=== PATIENT | female | born 1940 | race Hispanic/Latino ===

== ENCOUNTER → 2018-02-12 | Outpatient (CLI) | payer OTHER ==
[~2018-02-12] MED LIST: ALEN70TA47 PO; FURO20TA4 PO; GLIP1TAB6 PO; INSU100V3 IJ; LISI-617 PO; METO50TA18 PO; PANT40TA PO; PRAV40TA3 PO; WARF3TAB59 PO; WARF6TAB49 PO
== END ==
LOC: SHCH 13:50
PROVIDERS: ATTEND Internal Medicine Cardiovascular Disease
DX: I48.2 Chronic atrial fibrillation (principal); R60.0 Localized edema; Z95.2 Presence of prosthetic heart valve
CPT/HCPCS: 93925; 93970

== ENCOUNTER 2019-05-21 09:54 | Emergency (ER) | payer OTHER ==
[~2019-05-21 09:54] MED LIST changes: +ALEN70TA10 PO; -ALEN70TA47 PO
[2019-05-21 10:43] LABS: BASOPHILS % (AUTO) 1.2 % (0.0-5.0); EOSINOPHILS % (AUTO) 2.6 % (0.0-8.0); HEMATOCRIT 30.5 % (36-48); LYMPHOCYTES % (AUTO) 20.9 % (21.0-51.0); MEAN CORPUSCULAR HEMOGLOBIN 30.3 pg (27.0-33.0); MEAN CORPUSCULAR HGB CONC 34.1 g/dL (32.0-36.0); MEAN CORPUSCULAR VOLUME 88.7 fL (79-99); MONOCYTES % (AUTO) 9.1 % (3.0-13.0); NEUTROPHILS % (AUTO) 66.2 % (40.0-77.0); PLATELET COUNT (AUTO) 187 K/uL (130-400); RED BLOOD CELL COUNT(AUTO) 3.44 MIL/uL (4.00-5.50); RED CELL DISTRIBUTION WIDTH 13.9 % (11.0-15.5); WHITE BLOOD COUNT (AUTO) 7.5 K/uL (4.8-10.8)
[2019-05-21 11:04] LABS: CREATININE 0.7 mg/dL (0.5-1.5); POTASSIUM 3.9 mmol/L (3.5-5.1)
[2019-05-21 11:12] LABS: ALBUMIN 3.8 g/dL (3.5-5.0); BILIRUBIN,TOTAL 0.6 mg/dL (0.2-1.0); TOTAL PROTEIN, SERUM 7.9 g/dL (6.0-8.3)
[2019-05-21] MEDS ORDERED: IOHEXOL-350 50ML VIAL IV ONE (12:10)
== END 2019-05-21 14:40 | disposition home or self-care (01) ==
LOC: EDH 09:54
DX: J02.9 Acute pharyngitis, unspecified (principal); R22.0 Localized swelling, mass and lump, head; K14.8 Other diseases of tongue; I48.91 Unspecified atrial fibrillation; E11.9 Type 2 diabetes mellitus without complications; E78.5 Hyperlipidemia, unspecified; I10 Essential (primary) hypertension; Z86.73 Personal history of transient ischemic attack (TIA), and cerebral infarction without residual deficits; Z90.49 Acquired absence of other specified parts of digestive tract; Z88.0 Allergy status to penicillin; Z88.6 Allergy status to analgesic agent
CPT/HCPCS: 36415; 70491; 80053; 85025; 87880; 99285; Q9967

== ENCOUNTER 2019-07-03 19:38 | Observation (INO) | payer OTHER ==
[~2019-07-03] VITALS: Ht 152.4 cm; Wt 48.9 kg
[2019-07-03 19:58] LABS: EOSINOPHILS % (AUTO) 2.9 % (0.0-8.0); LYMPHOCYTES % (AUTO) 33.6 % (21.0-51.0); MEAN CORPUSCULAR HEMOGLOBIN 30.2 pg (27.0-33.0); MEAN CORPUSCULAR HGB CONC 33.4 g/dL (32.0-36.0); MEAN CORPUSCULAR VOLUME 90.5 fL (79-99); MONOCYTES % (AUTO) 10.3 % (3.0-13.0); NEUTROPHILS % (AUTO) 52.2 % (40.0-77.0); NUCLEATED RED BLOOD CELLS 0.1 % (0.0-0.19); PLATELET COUNT (AUTO) 156 K/uL (130-400); RED BLOOD CELL COUNT(AUTO) 3.54 MIL/uL (4.00-5.50); WHITE BLOOD COUNT (AUTO) 6.3 K/uL (4.8-10.8)
[2019-07-03 20:11] LABS: CREATININE 0.9 mg/dL (0.5-1.5); INR 1.7 (0.85-1.15); PARTIAL THROMBOPLASTIN TIME 35.8 SEC (26.3-35.5); POTASSIUM 3.4 mmol/L (3.5-5.1); PROTHROMBIN TIME 17.7 SEC (9.6-11.6)
[2019-07-03 20:12] LABS: APPEARANCE,URINE Clear (CLEAR); BILIRUBIN,URINE Negative (NEGATIVE); COLOR,URINE Yellow (YELLOW); GLUCOSE, URINE (UA) Negative (NEGATIVE); KETONES,URINE Negative (NEGATIVE); LEUKOCYTE ESTERASE ,URINE Negative (NEGATIVE); NITRATE,URINE Negative (NEGATIVE); OCCULT BLOOD,URINE Negative (NEGATIVE); PH,URINE 5.5 (5.0-8.0); PROTEIN,URINE Negative (NEGATIVE); UROBILINOGEN,URINE 0.2 mg/dL (0.2-1.0)
[2019-07-03 20:15] LABS: ALBUMIN 4.1 g/dL (3.5-5.0); BILIRUBIN,TOTAL 0.4 mg/dL (0.2-1.0); TOTAL PROTEIN, SERUM 7.9 g/dL (6.0-8.3)
[2019-07-03 20:41] LABS: B-TYPE NATRIURETIC PEPTIDE 33 pg/mL (0-100)
[2019-07-03] MEDS ORDERED: NITROGLYCERIN 1GM/1 INCH PACKET TD ONE (21:49)
[2019-07-03] MEDS ORDERED: ASPIRIN 325 MG TABLET ONE (21:49)
[2019-07-03] MEDS ORDERED: POTASSIUM CHLORIDE 20 MEQ ERTAB PO ONE (21:49)
[2019-07-04] MEDS ORDERED: METOPROLOL TARTRATE 1 MG/ML 5ML VIAL IV PRN (00:45)
[2019-07-04] MEDS ORDERED: NITROGLYCERIN 0.4 MG SL TAB SL PRN (00:45)
[2019-07-04] MEDS ORDERED: LACTULOSE 20 GM/30 ML UDCUP PO PRN (00:45)
[2019-07-04] MEDS ORDERED: GUAIFENESIN-DM 200/20 MG 10 ML PO PRN (00:45)
[2019-07-04] MEDS ORDERED: HYDRALAZINE HCL 20 MG/ML VIAL IV PRN (00:45)
[2019-07-04] MEDS ORDERED: HYDROMORPHONE HCL 2 MG/ML VIAL IVP PRN (00:45)
[2019-07-04] MEDS ORDERED: ALPRAZOLAM 0.25 MG TABLET PO PRN (00:45)
[2019-07-04] MEDS ORDERED: IPRATROPIUM/ALBUTEROL SULFATE 3 ML SOLUTION IH PRN (00:45)
[2019-07-04] MEDS ORDERED: HYDROCODONE/ACETAMINOPHEN 5/325 MG TAB PO PRN (00:45)
[2019-07-04] MEDS ORDERED: ACETAMINOPHEN 325 MG TAB PO PRN ×2 (00:45)
[2019-07-04] MEDS ORDERED: ZOLPIDEM TARTRATE 5 MG TAB PO PRN (00:45)
[2019-07-04 02:33] VITALS: BP 154/73
[2019-07-04 07:46] VITALS: BP 134/63
[2019-07-04] MEDS ORDERED: WARF7.5T23 PO ×2 (08:09→16:00)
[2019-07-04] MEDS ORDERED: WARF5TAB76 PO ×2 (08:09→16:00)
[2019-07-04] MEDS ORDERED: FERR325T22 PO (08:10)
[2019-07-04] MEDS ORDERED: FAMOTIDINE/PF 20 MG/2 ML VIAL IV SCH (09:00)
[2019-07-04] MEDS ORDERED: ASPIRIN 81MG TAB.CHEW PO SCH ×2 (09:00→16:15)
[2019-07-04 11:30] VITALS: BP 155/60
[2019-07-04 12:03] LABS: HEMATOCRIT 32.8 % (36-48); MEAN CORPUSCULAR HEMOGLOBIN 30.5 pg (27.0-33.0); MEAN CORPUSCULAR HGB CONC 34.4 g/dL (32.0-36.0); MEAN CORPUSCULAR VOLUME 88.7 fL (79-99); PLATELET COUNT (AUTO) 154 K/uL (130-400); RED BLOOD CELL COUNT(AUTO) 3.69 MIL/uL (4.00-5.50); RED CELL DISTRIBUTION WIDTH 14.9 % (11.0-15.5); WHITE BLOOD COUNT (AUTO) 4.9 K/uL (4.8-10.8)
[2019-07-04 12:10] LABS: CREATININE 0.6 mg/dL (0.5-1.5); POTASSIUM 3.8 mmol/L (3.5-5.1)
[2019-07-04 12:12] LABS: INR 1.74 (0.85-1.15); PARTIAL THROMBOPLASTIN TIME 37.8 SEC (26.3-35.5); PROTHROMBIN TIME 18.1 SEC (9.6-11.6)
--- NOTE | 2019-07-04 12:42 | NUR ---
KALANI CARROLL MET WITH PT WHO LIVES ALONE WITH HER DOG. DAUGHTER FREDDIE LEVIN [phone] IS ER CONTACT. PT STATES SHE IS INDEPENDENT OF ADLS, USES CANE AND SHOWER CHAIR, NO IN HOME CARE SERVICES. PCP IS DR TATUM AND RX IS DEBRA SILVA. PL[place] Addendum: 07/04/19 at 1244 by MARIA G GE SS Amended: Links added.
[2019-07-04] MEDS ORDERED: METHYLPREDNISOLONE SOD SUCC 125MG/2ML VIAL IVP SCH (15:15)
--- NOTE | 2019-07-04 15:40 | NUR ---
ORDERS CLARIFIED- NO DISCHARGE TODAY. DR MAY FROM [facility] SEEING PT RIGHT NOW. ORDERS TO FOLLOW. NO REPEAT TROPONIN PER DR MAY.
[2019-07-04 15:44] VITALS: BP 179/85
[2019-07-04] MEDS ORDERED: LISI-617 PO (16:00)
[2019-07-04] MEDS ORDERED: ISOS30TA6 PO (16:00)
[2019-07-04] MEDS ORDERED: WARFARIN SODIUM 5 MG TAB PO SCH (16:00)
[2019-07-04] MEDS ORDERED: ASPI-555 PO (16:07)
[2019-07-04] MEDS ORDERED: WARFARIN SODIUM 7.5 MG TAB PO SCH (16:15)
--- NOTE | 2019-07-04 18:30 | NUR ---
DISCHARGED HOME WITH DAUGHTERS. PRINTED AND VERBAL INSTRUCTION GIVEN TO PT AND DAUGHTERS. I WENT THOROUGHLY OVER COUMADIN THERAPY AND DIET. TO CAR VIA WHEELCHAIR. NO ACUTE DISTRESS NOTED
[2019-07-04] MEDS ORDERED: FERROUS SULFATE 325 MG TABLET.DR PO SCH (21:00)
[2019-07-05] MEDS ORDERED: AMLODIPINE BESYLATE 5 MG TAB PO SCH (09:00)
[2019-07-05] MEDS ORDERED: ATORVASTATIN CALCIUM 10 MG TABLET PO SCH (09:00)
[2019-07-05] MEDS ORDERED: FUROSEMIDE 20 MG TABLET PO SCH (09:00)
[2019-07-05] MEDS ORDERED: WARFARIN SODIUM 7.5 MG TAB PO SCH (16:00)
== END 2019-07-04 18:30 | disposition home or self-care (01) ==
LOC: EDH 19:38 → EDHIP 23:57 → 2AH 07-04 02:18
PROVIDERS: ADMIT Internal Medicine; ATTEND Internal Medicine
DX: I25.119 Atherosclerotic heart disease of native coronary artery with unspecified angina pectoris (principal); E11.9 Type 2 diabetes mellitus without complications; E78.5 Hyperlipidemia, unspecified; I08.0 Rheumatic disorders of both mitral and aortic valves; I10 Essential (primary) hypertension; I45.9 Conduction disorder, unspecified; I48.2 Chronic atrial fibrillation; R79.1 Abnormal coagulation profile; Z79.01 Long term (current) use of anticoagulants; Z86.73 Personal history of transient ischemic attack (TIA), and cerebral infarction without residual deficits; Z95.0 Presence of cardiac pacemaker; Z95.1 Presence of aortocoronary bypass graft; Z95.3 Presence of xenogenic heart valve; Z79.899 Other long term (current) drug therapy
CPT/HCPCS: 36415 ×2; 70450; 71045; 80048; 80053; 81003; 82550; 83880; 84443; 84484 ×3; 85025; 85027; 85610 ×2; 85730 ×2; 93005; 94664; 96374; 99284; G0378 ×19; J3490

== ENCOUNTER → 2020-12-08 | Outpatient (CLI) | payer OTHER ==
[~2020-12-08] MED LIST changes: -ALEN70TA10 PO; +ASPI-556 PO; +FERR325T22 PO; -GLIP1TAB6 PO; -INSU100V3 IJ; +ISOS30TA6 PO; -PANT40TA PO; -WARF3TAB59 PO; +WARF5TAB PO; -WARF6TAB49 PO; +WARF7.5T23 PO
== END | disposition home or self-care (01) ==
LOC: SHCH 11:19
PROVIDERS: ATTEND Internal Medicine Cardiovascular Disease
DX: I34.0 Nonrheumatic mitral (valve) insufficiency (principal)
CPT/HCPCS: 93306; 93356

== ENCOUNTER → 2021-02-24 | Outpatient (CLI) | payer OTHER ==
[~2021-02-24] MED LIST changes: -ISOS30TA6 PO; +ISOS30TA92 PO; -LISI-617 PO; +LISI-809 PO
== END | disposition home or self-care (01) ==
LOC: RAH 11:09
PROVIDERS: ATTEND Family Medicine
DX: S00.93XA Contusion of unspecified part of head, initial encounter (principal); G31.89 Other specified degenerative diseases of nervous system; I63.89 Other cerebral infarction; X58.XXXA Exposure to other specified factors, initial encounter; Y93.89 Activity, other specified; Y92.89 Other specified places as the place of occurrence of the external cause; Y99.8 Other external cause status; Z79.01 Long term (current) use of anticoagulants
CPT/HCPCS: 70450

== ENCOUNTER 2021-10-06 10:00 | Observation (INO) | payer OTHER ==
[~2021-10-06] VITALS: Ht 154.9 cm; Wt 48.1 kg
[~2021-10-06 10:00] MED LIST changes: -LISI-809 PO; +LISI5TAB21 PO
[2021-10-06] MEDS ORDERED: IBUPROFEN 400 MG TABLET PO ONE (10:30)
[2021-10-06 10:47] LABS: BASOPHILS % (AUTO) 0.5 % (0.0-5.0); EOSINOPHILS % (AUTO) 2.5 % (0.0-8.0); HEMATOCRIT 32.4 % (36-48); LYMPHOCYTES % (AUTO) 20.3 % (21.0-51.0); MEAN CORPUSCULAR HEMOGLOBIN 29.7 pg (27.0-33.0); MEAN CORPUSCULAR HGB CONC 33.6 g/dL (32.0-36.0); MEAN CORPUSCULAR VOLUME 88.3 fL (79-99); MONOCYTES % (AUTO) 8.8 % (3.0-13.0); NEUTROPHILS % (AUTO) 67.7 % (40.0-77.0); PLATELET COUNT (AUTO) 180 K/uL (130-400); RED BLOOD CELL COUNT(AUTO) 3.67 MIL/uL (4.00-5.50); RED CELL DISTRIBUTION WIDTH 13.7 % (11.0-15.5); WHITE BLOOD COUNT (AUTO) 8.6 K/uL (4.8-10.8)
[2021-10-06] MEDS: DEXAMETHASONE SOD PHOSPHATE 4 MG/ML 1ML VIAL IM SCH (11:01)
[2021-10-06 11:24] LABS: CREATININE 0.9 mg/dL (0.5-1.5); POTASSIUM 3.6 mmol/L (3.5-5.1)
[2021-10-06 11:28] LABS: ALBUMIN 4.4 g/dL (3.5-5.0); BILIRUBIN,TOTAL 0.5 mg/dL (0.2-1.0); TOTAL PROTEIN, SERUM 8.1 g/dL (6.0-8.3)
[2021-10-06] MEDS ORDERED: NITROGLYCERIN 0.4 MG SL TAB SL PRN (12:00)
[2021-10-06] MEDS ORDERED: ASPIRIN 325MG EC TAB PO ONE (12:00)
[2021-10-06] MEDS ORDERED: GLIP1TAB6 PO (12:50)
[2021-10-06] MEDS ORDERED: WARF-57 PO (12:50)
[2021-10-06] MEDS ORDERED: ATOR40TA71 PO (12:50)
[2021-10-06] MEDS ORDERED: WARF7.5T49 PO (12:50)
[2021-10-06] MEDS ORDERED: LISI5TAB21 PO (12:50)
[2021-10-06] MEDS ORDERED: METO25TA6 PO (12:50)
[2021-10-06] MEDS ORDERED: FURO20TA4 PO (12:50)
[2021-10-06] MEDS ORDERED: HYDROCODONE/ACETAMINOPHEN 5/325 MG TAB PO PRN (16:00)
[2021-10-06] MEDS ORDERED: ACETAMINOPHEN 325 MG TAB PO PRN ×2 (16:00)
[2021-10-06] MEDS ORDERED: METOPROLOL TARTRATE 1 MG/ML 5ML VIAL IV PRN (16:00)
[2021-10-06] MEDS ORDERED: HYDRALAZINE 20MG/ML VIAL IV PRN (16:00)
[2021-10-06] MEDS ORDERED: ONDANSETRON 4MG INJ IVP PRN (16:00)
[2021-10-06] MEDS ORDERED: LACTULOSE 20 GM/30 ML UDCUP PO PRN (16:00)
[2021-10-06] MEDS ORDERED: CLONIDINE HCL 0.1 MG TABLET PO PRN (16:00)
[2021-10-06] MEDS ORDERED: ATORVASTATIN 40 MG TABLET PO SCH (16:00)
[2021-10-06] MEDS: FAMOTIDINE 20MG TAB PO SCH (17:05)
[2021-10-06] MEDS: INSULIN HUMULIN R 100 UNIT/ML 3ML SQ SCH (21:03)
[2021-10-06] MEDS: FERROUS SULFATE 325 MG TABLET.DR PO SCH (21:03)
[2021-10-06] MEDS: METOPROLOL TARTRATE 25 MG TAB PO SCH (21:03)
[2021-10-06] MEDS: ENOXAPARIN SODIUM 30 MG/0.3 ML SQ SCH (21:03)
[2021-10-06 21:20] VITALS: BP 153/61
[2021-10-07] VITALS: BP 116/57
[2021-10-07 00:16] VITALS: BP 116/57
[2021-10-07 04:00] VITALS: BP 119/57
[2021-10-07 04:36] LABS: HEMATOCRIT 29.8 % (36-48); MEAN CORPUSCULAR HEMOGLOBIN 29.8 pg (27.0-33.0); MEAN CORPUSCULAR HGB CONC 33.9 g/dL (32.0-36.0); MEAN CORPUSCULAR VOLUME 87.9 fL (79-99); RED BLOOD CELL COUNT(AUTO) 3.39 MIL/uL (4.00-5.50); RED CELL DISTRIBUTION WIDTH 13.6 % (11.0-15.5); WHITE BLOOD COUNT (AUTO) 7.5 K/uL (4.8-10.8)
[2021-10-07 04:49] LABS: CREATININE 1.1 mg/dL (0.5-1.5); MAGNESIUM 1.8 mg/dL (1.80-2.40); PHOSPHORUS 3.6 mg/dL (2.5-4.9); POTASSIUM 3.7 mmol/L (3.5-5.1)
[2021-10-07] MEDS: INSULIN HUMULIN R 100 UNIT/ML 3ML SQ SCH ×3 (06:38→16:30)
[2021-10-07 08:00] VITALS: BP 126/63
[2021-10-07] MEDS ORDERED: LISINOPRIL 5 MG TABLET PO SCH (09:00)
[2021-10-07] MEDS ORDERED: ATORVASTATIN 20 MG TABLET PO SCH (09:00)
[2021-10-07] MEDS ORDERED: ASPIRIN 81MG CHEW TAB PO SCH (09:00)
[2021-10-07] MEDS ORDERED: ASPIRIN 81 MG EC TAB PO SCH (09:00)
[2021-10-07] MEDS ORDERED: FUROSEMIDE 20 MG TABLET PO SCH (09:00)
[2021-10-07] MEDS ORDERED: ISOSORBIDE MONO 30MG SR TAB PO SCH (09:00)
[2021-10-07] MEDS: FAMOTIDINE 20MG TAB PO SCH (09:26)
[2021-10-07] MEDS: FERROUS SULFATE 325 MG TABLET.DR PO SCH (09:26)
[2021-10-07] MEDS: METOPROLOL TARTRATE 25 MG TAB PO SCH (09:26)
[2021-10-07] MEDS: ENOXAPARIN SODIUM 30 MG/0.3 ML SQ SCH (09:27)
[2021-10-07] MEDS: DEXAMETHASONE SOD PHOSPHATE 4 MG/ML 1ML VIAL IM SCH (10:30)
[2021-10-07 12:00] VITALS: BP 102/50
[2021-10-07] MEDS ORDERED: METH4TAB3 PO (15:48)
[2021-10-07 16:00] VITALS: BP 116/73
== END 2021-10-07 18:15 | disposition home or self-care (01) ==
LOC: EDH 10:00 → EDHIP 12:51 → 3AH 20:52
PROVIDERS: ADMIT Internal Medicine Critical Care Medicine; ATTEND Internal Medicine Critical Care Medicine
DX: I21.4 Non-ST elevation (NSTEMI) myocardial infarction (principal); M25.511 Pain in right shoulder; M62.81 Muscle weakness (generalized); I25.10 Atherosclerotic heart disease of native coronary artery without angina pectoris; I34.1 Nonrheumatic mitral (valve) prolapse; I48.0 Paroxysmal atrial fibrillation; I10 Essential (primary) hypertension; E11.9 Type 2 diabetes mellitus without complications; E78.5 Hyperlipidemia, unspecified; E78.00 Pure hypercholesterolemia, unspecified; R77.8 Other specified abnormalities of plasma proteins; Z86.73 Personal history of transient ischemic attack (TIA), and cerebral infarction without residual deficits; Z95.1 Presence of aortocoronary bypass graft; Z79.01 Long term (current) use of anticoagulants; Z79.82 Long term (current) use of aspirin; Z79.899 Other long term (current) drug therapy; Z95.2 Presence of prosthetic heart valve; Z98.890 Other specified postprocedural states
CPT/HCPCS: 36415 ×2; 71045; 72125; 73030; 73200; 80048; 80053; 82948 ×4; 83735; 84100; 84484 ×4; 85025; 85027; 92610; 93005 ×2; 96372 ×2; 97116; 97161; 99291; G0378 ×28; J1100; J1650 ×2; J1815 ×2

== ENCOUNTER → 2021-11-22 | Outpatient (CLI) | payer OTHER ==
[~2021-11-22] MED LIST changes: -ASPI-556 PO; +ATOR40TA71 PO; -FERR325T22 PO; +GLIP1TAB6 PO; -ISOS30TA92 PO; +METH4TAB3 PO; +METO25TA6 PO; -METO50TA18 PO; -PRAV40TA3 PO; +REGADENOSON 0.4 MG/5 ML PF SYG IVP SCH; +WARF-57 PO; -WARF5TAB PO; -WARF7.5T23 PO; +WARF7.5T49 PO
== END | disposition home or self-care (01) ==
LOC: SHCH 07:36
PROVIDERS: ATTEND Internal Medicine Cardiovascular Disease
DX: I48.0 Paroxysmal atrial fibrillation (principal); Z79.01 Long term (current) use of anticoagulants; Z95.1 Presence of aortocoronary bypass graft; Z95.0 Presence of cardiac pacemaker
CPT/HCPCS: 78452; 93017; 96374; A9500 ×2; J2785

== ENCOUNTER 2022-04-21 23:11 | Observation (INO) | payer OTHER ==
[~2022-04-21] VITALS: Ht 152.4 cm; Wt 456.2 kg
[~2022-04-21 23:11] MED LIST changes: -REGADENOSON 0.4 MG/5 ML PF SYG IVP SCH
[2022-04-21 23:42] LABS: BASOPHILS % (AUTO) 0.3 % (0.0-5.0); EOSINOPHILS % (AUTO) 3.9 % (0.0-8.0); HEMATOCRIT 30.9 % (36-48); MEAN CORPUSCULAR HEMOGLOBIN 29.4 pg (27.0-33.0); MEAN CORPUSCULAR HGB CONC 32.7 g/dL (32.0-36.0); MEAN CORPUSCULAR VOLUME 89.8 fL (79-99); MONOCYTES % (AUTO) 12.3 % (3.0-13.0); NEUTROPHILS % (AUTO) 50.3 % (40.0-77.0); PLATELET COUNT (AUTO) 174 K/uL (130-400); RED BLOOD CELL COUNT(AUTO) 3.44 MIL/uL (4.00-5.50); RED CELL DISTRIBUTION WIDTH 13.8 % (11.0-15.5); WHITE BLOOD COUNT (AUTO) 6.1 K/uL (4.8-10.8)
[2022-04-22 00:06] LABS: CREATININE 0.8 mg/dL (0.5-1.5); POTASSIUM 3.7 mmol/L (3.5-5.1)
[2022-04-22 00:10] LABS: BILIRUBIN,TOTAL 0.4 mg/dL (0.2-1.0); TOTAL PROTEIN, SERUM 7.5 g/dL (6.0-8.3)
[2022-04-22 00:24] LABS: APPEARANCE,URINE Clear (CLEAR); BILIRUBIN,URINE Negative (NEGATIVE); COLOR,URINE Yellow (YELLOW); GLUCOSE, URINE (UA) 500 mg/dL (NEGATIVE); KETONES,URINE Negative (NEGATIVE); LEUKOCYTE ESTERASE ,URINE Small (NEGATIVE); NITRATE,URINE Negative (NEGATIVE); OCCULT BLOOD,URINE Small (NEGATIVE); PROTEIN,URINE Trace mg/dL (NEGATIVE)
[2022-04-22 00:30] LABS: BACTERIA,URINE None Seen /HPF (None Seen); RBC,URINE 0-1 /HPF (0-1); SQUAMOUS EPITHELIAL CELL,UR Rare /HPF (0-2); WBC,URINE 0-1 /HPF (0-1); YEAST,URINE BUDDING None Seen /HPF (None Seen)
[2022-04-22] MEDS ORDERED: NITROGLYCERIN 1GM OINT 1 INCH/1GM TD ONE (01:00)
[2022-04-22 01:01] LABS: PARTIAL THROMBOPLASTIN TIME 45.5 SEC (26.3-35.5)
[2022-04-22 01:14] LABS: PROTHROMBIN TIME 40.3 SEC (9.6-11.6)
[2022-04-22] MEDS ORDERED: ACETAMINOPHEN 650 MG SUPPOSITORY RC PRN (01:30)
[2022-04-22] MEDS ORDERED: HYDRALAZINE 20MG/ML VIAL IV PRN (01:30)
[2022-04-22] MEDS ORDERED: ACETAMINOPHEN 325 MG TAB PO PRN (01:30)
[2022-04-22] MEDS ORDERED: 0.9%NACL 1000ML 1,000 ML IV SCH (01:30)
[2022-04-22] MEDS ORDERED: MORPHINE 2 MG SYG IVP PRN (01:30)
[2022-04-22 05:36] VITALS: BP 163/73
[2022-04-22] MEDS ORDERED: IPRATROPIUM 0.5 MG/2.5 ML INH IH SCH (06:00)
[2022-04-22 07:00] VITALS: BP 135/61
[2022-04-22 07:23] LABS: INR 4.39 (0.85-1.15)
[2022-04-22] MEDS: INSULIN LISPRO 100 UNIT/ML 3ML SQ SCH ×4 (07:30→20:25)
[2022-04-22 09:16] LABS: HEMATOCRIT 31.1 % (36-48); MEAN CORPUSCULAR HEMOGLOBIN 29.3 pg (27.0-33.0); MEAN CORPUSCULAR HGB CONC 33.1 g/dL (32.0-36.0); MEAN CORPUSCULAR VOLUME 88.4 fL (79-99); PLATELET COUNT (AUTO) 171 K/uL (130-400); RED BLOOD CELL COUNT(AUTO) 3.52 MIL/uL (4.00-5.50); RED CELL DISTRIBUTION WIDTH 13.7 % (11.0-15.5); WHITE BLOOD COUNT (AUTO) 6.1 K/uL (4.8-10.8)
[2022-04-22 09:27] LABS: CREATININE 0.7 mg/dL (0.5-1.5); POTASSIUM 3.7 mmol/L (3.5-5.1)
[2022-04-22] MEDS ORDERED: METOPROLOL TARTRATE 25 MG TAB PO SCH (09:30)
[2022-04-22 09:56] LABS: BASOPHILS % (AUTO) 0.3 % (0.0-5.0); EOSINOPHILS % (AUTO) 3.3 % (0.0-8.0); LYMPHOCYTES % (AUTO) 28.4 % (21.0-51.0); MONOCYTES % (AUTO) 10.8 % (3.0-13.0); NEUTROPHILS % (AUTO) 56.9 % (40.0-77.0)
[2022-04-22] MEDS: LISINOPRIL 10 MG TABLET PO SCH (10:13)
[2022-04-22] MEDS: POTASSIUM CHLORIDE 10MEQ SR TAB PO SCH (10:14)
[2022-04-22] MEDS: METOPROLOL TARTRATE 25 MG TAB PO SCH ×2 (10:14→21:00)
[2022-04-22] MEDS: FUROSEMIDE 20MG VIAL IV SCH (10:14)
[2022-04-22 11:00] VITALS: BP 122/63
[2022-04-22 16:00] VITALS: BP 103/54
[2022-04-22 20:09] VITALS: BP 95/50
[2022-04-22] MEDS: ATORVASTATIN 40 MG TABLET PO SCH (20:24)
[2022-04-22] MEDS ORDERED: ENOXAPARIN SODIUM 1 MG/KG SQ SCH (21:00)
[2022-04-22] MEDS ORDERED: ENOXAPARIN SODIUM 60 MG/0.6 ML SQ SCH (21:00)
[2022-04-22 23:05] VITALS: BP 107/56
[2022-04-23] VITALS (7 sets, daily range): BP systolic 98–138; BP diastolic 50–66
[2022-04-23 04:02] LABS: HEMATOCRIT 31.3 % (36-48); MEAN CORPUSCULAR HEMOGLOBIN 29.2 pg (27.0-33.0); MEAN CORPUSCULAR HGB CONC 33.2 g/dL (32.0-36.0); MEAN CORPUSCULAR VOLUME 87.9 fL (79-99); RED BLOOD CELL COUNT(AUTO) 3.56 MIL/uL (4.00-5.50); RED CELL DISTRIBUTION WIDTH 13.8 % (11.0-15.5); WHITE BLOOD COUNT (AUTO) 5.7 K/uL (4.8-10.8)
[2022-04-23 04:51] LABS: MAGNESIUM 1.6 mg/dL (1.80-2.40); PHOSPHORUS 3.6 mg/dL (2.5-4.9); POTASSIUM 3.9 mmol/L (3.5-5.1)
[2022-04-23] MEDS ORDERED: MAGNESIUM 2GM PREMIX 50ML 50 ML IV PRN (06:00)
[2022-04-23 06:38] LABS: INR 2.61 (0.85-1.15); PROTHROMBIN TIME 26.9 SEC (9.6-11.6)
[2022-04-23] MEDS: INSULIN LISPRO 100 UNIT/ML 3ML SQ SCH ×4 (07:30→21:07)
[2022-04-23] MEDS: ASPIRIN 81MG CHEW TAB PO SCH (08:48)
[2022-04-23] MEDS: POTASSIUM CHLORIDE 10MEQ SR TAB PO SCH (08:48)
[2022-04-23] MEDS: METOPROLOL TARTRATE 25 MG TAB PO SCH ×2 (08:48→21:05)
[2022-04-23] MEDS: FUROSEMIDE 20MG VIAL IV SCH (08:48)
[2022-04-23] MEDS: LISINOPRIL 10 MG TABLET PO SCH (08:49)
[2022-04-23] MEDS ORDERED: WARFARIN SODIUM 5 MG TAB PO SCH (17:00)
[2022-04-23] MEDS: ATORVASTATIN 40 MG TABLET PO SCH (21:05)
[2022-04-24 03:57] LABS: BASOPHILS % (AUTO) 0.4 % (0.0-5.0); EOSINOPHILS % (AUTO) 2.6 % (0.0-8.0); HEMATOCRIT 30.9 % (36-48); MEAN CORPUSCULAR HEMOGLOBIN 29.3 pg (27.0-33.0); MEAN CORPUSCULAR VOLUME 88.8 fL (79-99); MONOCYTES % (AUTO) 10.5 % (3.0-13.0); NEUTROPHILS % (AUTO) 70.2 % (40.0-77.0); PLATELET COUNT (AUTO) 164 K/uL (130-400); RED BLOOD CELL COUNT(AUTO) 3.48 MIL/uL (4.00-5.50); RED CELL DISTRIBUTION WIDTH 13.9 % (11.0-15.5)
[2022-04-24 04:00] VITALS: BP 149/74
[2022-04-24 04:08] LABS: INR 1.81 (0.85-1.15); PROTHROMBIN TIME 19.1 SEC (9.6-11.6)
[2022-04-24 04:15] LABS: ALBUMIN 3.5 g/dL (3.5-5.0); BILIRUBIN,TOTAL 0.6 mg/dL (0.2-1.0); CREATININE 0.7 mg/dL (0.5-1.5); MAGNESIUM 2.1 mg/dL (1.80-2.40); POTASSIUM 3.5 mmol/L (3.5-5.1); TOTAL PROTEIN, SERUM 6.8 g/dL (6.0-8.3)
[2022-04-24] MEDS: INSULIN LISPRO 100 UNIT/ML 3ML SQ SCH ×3 (06:41→16:12)
[2022-04-24 07:50] VITALS: BP 117/57
[2022-04-24] MEDS: POTASSIUM CHLORIDE 10MEQ SR TAB PO SCH (07:51)
[2022-04-24] MEDS: ASPIRIN 81MG CHEW TAB PO SCH (07:52)
[2022-04-24] MEDS: METOPROLOL TARTRATE 25 MG TAB PO SCH (07:52)
[2022-04-24] MEDS: LISINOPRIL 10 MG TABLET PO SCH (07:52)
[2022-04-24] MEDS: FUROSEMIDE 20MG VIAL IV SCH (07:53)
[2022-04-24] MEDS ORDERED: NITROGLYCERIN 0.4 MG SL TAB SL PRN (11:30)
[2022-04-24] MEDS ORDERED: Nitroglycerin 0.4MG Sl Tab SL (11:30)
[2022-04-24] MEDS ORDERED: WARFARIN SODIUM 5 MG TAB PO SCH (11:30)
[2022-04-24 11:53] VITALS: BP 104/56
[2022-04-24] MEDS ORDERED: WARFARIN SODIUM 2 MG TAB PO SCH (14:00)
[2022-04-24 15:30] VITALS: BP 138/65
== END 2022-04-24 18:00 | disposition home or self-care (01) ==
LOC: EDH 23:11 → EDHIP 04-22 01:26 → 2AH 04-22 05:07
PROVIDERS: ADMIT Internal Medicine Critical Care Medicine; ATTEND Internal Medicine Critical Care Medicine
DX: I21.4 Non-ST elevation (NSTEMI) myocardial infarction (principal); I25.10 Atherosclerotic heart disease of native coronary artery without angina pectoris; I35.0 Nonrheumatic aortic (valve) stenosis; I48.91 Unspecified atrial fibrillation; I10 Essential (primary) hypertension; D68.59 Other primary thrombophilia; E11.65 Type 2 diabetes mellitus with hyperglycemia; E78.00 Pure hypercholesterolemia, unspecified; I21.A1 Myocardial infarction type 2; I27.20 Pulmonary hypertension, unspecified; I34.1 Nonrheumatic mitral (valve) prolapse; I48.20 Chronic atrial fibrillation, unspecified; M47.815 Spondylosis without myelopathy or radiculopathy, thoracolumbar region; T45.515A Adverse effect of anticoagulants, initial encounter; Z79.01 Long term (current) use of anticoagulants; Z79.899 Other long term (current) drug therapy; Z86.73 Personal history of transient ischemic attack (TIA), and cerebral infarction without residual deficits; Z87.891 Personal history of nicotine dependence; Z95.0 Presence of cardiac pacemaker; Z95.1 Presence of aortocoronary bypass graft; Z95.3 Presence of xenogenic heart valve; Z98.890 Other specified postprocedural states
CPT/HCPCS: 36415 ×4; 71045 ×2; 80048 ×2; 80053 ×2; 80061; 81001; 82550 ×2; 82948 ×10; 83735 ×2; 83874 ×2; 83880; 84100; 84484 ×3; 85025 ×3; 85027; 85610 ×4; 85730; 93005 ×2; 93306; 93356; 94640; 94664; 96361; 96365; 96366; 96372 ×3; 96375; 96376 ×2; 99291; G0378 ×62; J0360; J1940 ×3; J3475

== ENCOUNTER → 2022-08-16 | Outpatient (CLI) | payer OTHER ==
[~2022-08-16] MED LIST changes: -METH4TAB3 PO; +Nitroglycerin 0.4MG Sl Tab SL
[2022-08-16 12:31] LABS: BASOPHILS % (AUTO) 0.7 % (0.0-5.0); EOSINOPHILS % (AUTO) 3.8 % (0.0-8.0); HEMATOCRIT 31.4 % (36-48); LYMPHOCYTES % (AUTO) 34.5 % (21.0-51.0); MEAN CORPUSCULAR HEMOGLOBIN 29.7 pg (27.0-33.0); MEAN CORPUSCULAR HGB CONC 33.1 g/dL (32.0-36.0); MEAN CORPUSCULAR VOLUME 89.7 fL (79-99); MONOCYTES % (AUTO) 10.4 % (3.0-13.0); NEUTROPHILS % (AUTO) 50.2 % (40.0-77.0); PLATELET COUNT (AUTO) 175 K/uL (130-400); RED CELL DISTRIBUTION WIDTH 13.6 % (11.0-15.5); WHITE BLOOD COUNT (AUTO) 5.6 K/uL (4.8-10.8)
[2022-08-16 12:44] LABS: CREATININE 0.9 mg/dL (0.5-1.5); POTASSIUM 4.2 mmol/L (3.5-5.1); TOTAL PROTEIN, SERUM 7.7 g/dL (6.0-8.3)
== END | disposition home or self-care (01) ==
LOC: LAB 08:08
PROVIDERS: ATTEND Internal Medicine Cardiovascular Disease
DX: I50.42 Chronic combined systolic (congestive) and diastolic (congestive) heart failure (principal); I48.20 Chronic atrial fibrillation, unspecified
CPT/HCPCS: 36415; 80053; 80061; 85025

== ENCOUNTER → 2022-12-15 | Outpatient (CLI) | payer OTHER ==
[2022-12-15 12:10] LABS: BASOPHILS % (AUTO) 0.6 % (0.0-5.0); EOSINOPHILS % (AUTO) 3.9 % (0.0-8.0); HEMATOCRIT 32.5 % (36-48); LYMPHOCYTES % (AUTO) 34.1 % (21.0-51.0); MEAN CORPUSCULAR HEMOGLOBIN 29.4 pg (27.0-33.0); MEAN CORPUSCULAR HGB CONC 32.6 g/dL (32.0-36.0); MONOCYTES % (AUTO) 10.7 % (3.0-13.0); NEUTROPHILS % (AUTO) 50.5 % (40.0-77.0); PLATELET COUNT (AUTO) 185 K/uL (130-400); RED BLOOD CELL COUNT(AUTO) 3.61 MIL/uL (4.00-5.50); RED CELL DISTRIBUTION WIDTH 13.6 % (11.0-15.5); WHITE BLOOD COUNT (AUTO) 4.9 K/uL (4.8-10.8)
[2022-12-15 12:16] LABS: ALBUMIN 4.1 g/dL (3.5-5.0); TOTAL PROTEIN, SERUM 7.8 g/dL (6.0-8.3)
== END | disposition home or self-care (01) ==
LOC: LAB 08:21
PROVIDERS: ATTEND Internal Medicine Cardiovascular Disease
DX: I10 Essential (primary) hypertension (principal); E78.5 Hyperlipidemia, unspecified
CPT/HCPCS: 36415; 80053; 80061; 85025

== ENCOUNTER → 2023-02-06 | Outpatient (CLI) | payer OTHER ==
[2023-02-06 13:09] LABS: CREATININE 1.1 mg/dL (0.5-1.5); POTASSIUM 4.1 mmol/L (3.5-5.1)
== END | disposition home or self-care (01) ==
LOC: LAB 08:08
PROVIDERS: ATTEND Internal Medicine Cardiovascular Disease
DX: I08.0 Rheumatic disorders of both mitral and aortic valves (principal); I50.42 Chronic combined systolic (congestive) and diastolic (congestive) heart failure
CPT/HCPCS: 36415; 80048; 83880

== ENCOUNTER → 2023-06-14 | Outpatient (CLI) | payer OTHER ==
[2023-06-14 12:36] LABS: CREATININE 0.9 mg/dL (0.5-1.5)
== END | disposition home or self-care (01) ==
LOC: LAB 10:56
PROVIDERS: ATTEND Internal Medicine Cardiovascular Disease
DX: I50.22 Chronic systolic (congestive) heart failure (principal)
CPT/HCPCS: 36415; 80048

== ENCOUNTER → 2023-10-11 | Outpatient (CLI) | payer OTHER ==
[2023-10-11 12:54] LABS: CREATININE 0.9 mg/dL (0.5-1.5); POTASSIUM 4.4 mmol/L (3.5-5.1)
== END | disposition home or self-care (01) ==
LOC: LAB 08:23
PROVIDERS: ATTEND Internal Medicine Cardiovascular Disease
DX: I50.22 Chronic systolic (congestive) heart failure (principal)
CPT/HCPCS: 36415; 80048

== ENCOUNTER → 2023-10-17 | Outpatient (CLI) | payer OTHER ==
[2023-10-17 12:17] LABS: BASOPHILS # (AUTO) 0.03 K/uL (0.00-0.20); BASOPHILS % (AUTO) 0.7 % (0.0-5.0); EOSINOPHILS # (AUTO) 0.15 K/uL (0.00-0.70); EOSINOPHILS % (AUTO) 3.3 % (0.0-8.0); HEMATOCRIT 34.7 % (36-48); IMMATURE GRANULOCYTE ABSOLUTE 0.01 K/uL (0-1); LYMPHOCYTES # (AUTO) 1.6 K/uL (1.0-4.8); LYMPHOCYTES % (AUTO) 35.7 % (21.0-51.0); MEAN CORPUSCULAR HEMOGLOBIN 29.3 pg (27.0-33.0); MEAN CORPUSCULAR VOLUME 91.6 fL (79-99); MONOCYTES # (AUTO) 0.5 K/uL (0.1-1.0); MONOCYTES % (AUTO) 11.6 % (3.0-13.0); NEUTROPHILS # (AUTO) 2.2 K/uL (1.8-7.7); NEUTROPHILS % (AUTO) 48.5 % (40.0-77.0); PLATELET COUNT (AUTO) 187 K/uL (130-400); RED BLOOD CELL COUNT(AUTO) 3.79 MIL/uL (4.00-5.50); RED CELL DISTRIBUTION WIDTH 14.6 % (11.0-15.5); WHITE BLOOD COUNT (AUTO) 4.5 K/uL (4.8-10.8)
[2023-10-17 12:27] LABS: ALBUMIN 4.2 g/dL (3.5-5.0); BILIRUBIN,TOTAL 0.6 mg/dL (0.2-1.0); CREATININE 0.9 mg/dL (0.5-1.5); POTASSIUM 3.8 mmol/L (3.5-5.1); TOTAL PROTEIN, SERUM 7.9 g/dL (6.0-8.3)
[2023-10-17 12:41] LABS: B-TYPE NATRIURETIC PEPTIDE 31 pg/mL (0-100)
== END | disposition home or self-care (01) ==
LOC: LAB 08:20
PROVIDERS: ATTEND Internal Medicine Cardiovascular Disease
DX: I11.0 Hypertensive heart disease with heart failure (principal); I50.42 Chronic combined systolic (congestive) and diastolic (congestive) heart failure; E78.5 Hyperlipidemia, unspecified
CPT/HCPCS: 36415; 80053; 80061; 83880; 85025

== ENCOUNTER → 2023-12-30 | Outpatient (CLI) | payer OTHER | END | disposition home or self-care (01) | LOC: SHCH 13:07 | PROVIDERS: ATTEND Internal Medicine Cardiovascular Disease | DX: I07.1 Rheumatic tricuspid insufficiency (principal); I44.2 Atrioventricular block, complete; Z95.3 Presence of xenogenic heart valve | CPT/HCPCS: 93306 ==

== ENCOUNTER 2024-01-17 05:54 | Day surgery (SDC) | payer OTHER ==
[2024-01-15 09:14] LABS: BASOPHILS # (AUTO) 0.02 K/uL (0.00-0.20); BASOPHILS % (AUTO) 0.3 % (0.0-5.0); EOSINOPHILS # (AUTO) 0.15 K/uL (0.00-0.70); EOSINOPHILS % (AUTO) 2.2 % (0.0-8.0); HEMATOCRIT 35.6 % (36-48); IMMATURE GRANULOCYTE ABSOLUTE 0.01 K/uL (0-1); LYMPHOCYTES # (AUTO) 1.2 K/uL (1.0-4.8); LYMPHOCYTES % (AUTO) 17.6 % (21.0-51.0); MEAN CORPUSCULAR HEMOGLOBIN 29.1 pg (27.0-33.0); MEAN CORPUSCULAR HGB CONC 32.6 g/dL (32.0-36.0); MEAN CORPUSCULAR VOLUME 89.4 fL (79-99); MONOCYTES # (AUTO) 0.5 K/uL (0.1-1.0); MONOCYTES % (AUTO) 7.6 % (3.0-13.0); NEUTROPHILS # (AUTO) 4.9 K/uL (1.8-7.7); NEUTROPHILS % (AUTO) 72.2 % (40.0-77.0); PLATELET COUNT (AUTO) 187 K/uL (130-400); RED BLOOD CELL COUNT(AUTO) 3.98 MIL/uL (4.00-5.50); RED CELL DISTRIBUTION WIDTH 14.5 % (11.0-15.5); WHITE BLOOD COUNT (AUTO) 6.7 K/uL (4.8-10.8)
[2024-01-15 09:21] LABS: CREATININE 0.9 mg/dL (0.5-1.5); POTASSIUM 3.4 mmol/L (3.5-5.1)
[2024-01-15 09:29] LABS: INR 2.28 (0.85-1.15); PROTHROMBIN TIME 25.1 SEC (9.6-11.6)
[2024-01-15 09:30] LABS: PARTIAL THROMBOPLASTIN TIME 44.1 SEC (26.3-35.5)
[2024-01-15 09:39] VITALS: BP 146/71; PULSE 86; RESP 17
[~2024-01-17] VITALS: Ht 154.9 cm; Wt 47.7 kg
[2024-01-17] VITALS (9 sets, daily range): BP systolic 123–149; BP diastolic 58–69; PULSE 70–86; RESP 10–18
[~2024-01-17 05:54] MED LIST changes: +EMPA10TA PO; -Nitroglycerin 0.4MG Sl Tab SL; +PREVAGEN PO
[2024-01-17 06:33] LABS: CREATININE 0.9 mg/dL (0.5-1.5); POTASSIUM 3.9 mmol/L (3.5-5.1)
[2024-01-17 06:35] LABS: INR 2.24 (0.85-1.15); PROTHROMBIN TIME 24.7 SEC (9.6-11.6)
[2024-01-17] MEDS: 0.9%NACL 1000ML 1,000 ML IV ONE (06:39)
[2024-01-17] MEDS ORDERED: CEFAZOLIN SODIUM 1 GM VIAL ONE (07:13)
[2024-01-17] MEDS ORDERED: LIDOCAINE HCL 1% MDV 50ML VIAL ONE (07:13)
[2024-01-17] MEDS ORDERED: MEPERIDINE-PF 25 MG/ML SYG ONE ×3 (07:13→08:54)
[2024-01-17] MEDS ORDERED: MIDAZOLAM HCL 1 MG/ML 2ML VIAL ONE ×3 (07:14→08:54)
[2024-01-17] MEDS ORDERED: BUPIVACAINE/PF 0.25% 30ML VIAL IJ ONE (07:14)
[2024-01-17] MEDS ORDERED: VANCOMYCIN 1G/250ML KIT 500 ML IV ONE (07:38)
[2024-01-17] MEDS ORDERED: THROMBIN-JMI 5000 UNIT/VIAL TP ONE (08:39)
[2024-01-17] MEDS ORDERED: BACITRACIN 1 EACH PACKET TP ONE (09:11)
[2024-01-17] MEDS ORDERED: ACETAMINOPHEN 500 MG TABLET PO PRN (09:30)
[2024-01-17] MEDS ORDERED: ACETAMINOPHEN WITH CODEINE 1 TAB TAB PO PRN (09:30)
[2024-01-17] MEDS ORDERED: TRAM50TA4 PO (09:32)
== END 2024-01-17 12:34 | disposition home or self-care (01) ==
LOC: DAH 05:54
PROVIDERS: ATTEND Internal Medicine Cardiovascular Disease
DX: I44.2 Atrioventricular block, complete (principal); T82.191A Other mechanical complication of cardiac pulse generator (battery), initial encounter; I48.21 Permanent atrial fibrillation; I10 Essential (primary) hypertension; Z79.899 Other long term (current) drug therapy; Z79.84 Long term (current) use of oral hypoglycemic drugs; Z79.01 Long term (current) use of anticoagulants; Z86.73 Personal history of transient ischemic attack (TIA), and cerebral infarction without residual deficits; Z88.8 Allergy status to other drugs, medicaments and biological substances; Z95.2 Presence of prosthetic heart valve; Z95.1 Presence of aortocoronary bypass graft; Y83.8 Other surgical procedures as the cause of abnormal reaction of the patient, or of later complication, without mention of misadventure at the time of the procedure; Y92.89 Other specified places as the place of occurrence of the external cause
CPT/HCPCS: 80048 ×2; 85025; 85610 ×2; 85730; 36415 ×2; 93005; 33222; 82948; J7030; J0665; J2250 ×3; J3370; J3490 ×2; J2175 ×3; A4215; A4222; A4221; A4663; A4216; A4606; A4223 ×3; 17999; 99156; 99157; J0690

== ENCOUNTER 2024-03-09 11:09 | Observation (INO) | payer OTHER ==
[~2024-03-09] VITALS: Ht 154.9 cm; Wt 47.9 kg
[~2024-03-09 11:09] MED LIST changes: +TRAM50TA4 PO
[2024-03-09 12:19] LABS: BASOPHILS # (AUTO) 0.04 K/uL (0.00-0.20); BASOPHILS % (AUTO) 0.6 % (0.0-5.0); EOSINOPHILS % (AUTO) 3.2 % (0.0-8.0); HEMATOCRIT 34.5 % (36-48); IMMATURE GRANULOCYTE ABSOLUTE 0.01 K/uL (0-1); LYMPHOCYTES # (AUTO) 1.8 K/uL (1.0-4.8); LYMPHOCYTES % (AUTO) 28.5 % (21.0-51.0); MEAN CORPUSCULAR HEMOGLOBIN 29.2 pg (27.0-33.0); MEAN CORPUSCULAR HGB CONC 32.5 g/dL (32.0-36.0); MEAN CORPUSCULAR VOLUME 90.1 fL (79-99); MONOCYTES # (AUTO) 0.6 K/uL (0.1-1.0); MONOCYTES % (AUTO) 9.7 % (3.0-13.0); NEUTROPHILS # (AUTO) 3.6 K/uL (1.8-7.7); NEUTROPHILS % (AUTO) 57.8 % (40.0-77.0); PLATELET COUNT (AUTO) 205 K/uL (130-400); RED BLOOD CELL COUNT(AUTO) 3.83 MIL/uL (4.00-5.50); RED CELL DISTRIBUTION WIDTH 14.3 % (11.0-15.5); WHITE BLOOD COUNT (AUTO) 6.2 K/uL (4.8-10.8)
[2024-03-09 12:29] LABS: APPEARANCE,URINE CLEAR (CLEAR); BILIRUBIN,URINE NEGATIVE (NEGATIVE); GLUCOSE, URINE (UA) >=1000 mg/dL (NEGATIVE); KETONES,URINE NEGATIVE (NEGATIVE); LEUKOCYTE ESTERASE ,URINE NEGATIVE Leu/uL (NEGATIVE); NITRATE,URINE NEGATIVE (NEGATIVE); OCCULT BLOOD,URINE NEGATIVE (NEGATIVE); PH,URINE 6.5 (5.0-8.0); PROTEIN,URINE NEGATIVE (NEGATIVE); UROBILINOGEN,URINE 0.2 mg/dL (0.2-1.0)
[2024-03-09 12:30] LABS: ADD UA MICROSCOPIC YES; COLOR,URINE LIGHT-YELLOW (YELLOW)
[2024-03-09 12:31] LABS: CREATININE 0.9 mg/dL (0.5-1.0); POTASSIUM 3.2 mmol/L (3.5-5.1); RBC,URINE 0-1 /HPF (0-1); SQUAMOUS EPITHELIAL CELL,UR RARE /HPF (0-2)
[2024-03-09 12:33] LABS: INR 2.4 (0.85-1.15); PROTHROMBIN TIME 26.5 SEC (9.6-11.6)
[2024-03-09 12:35] LABS: ALBUMIN 4.2 g/dL (3.5-5.0); BILIRUBIN,TOTAL 0.5 mg/dL (0.2-1.0); TOTAL PROTEIN, SERUM 8.5 g/dL (6.0-8.3)
[2024-03-09 12:43] LABS: B-TYPE NATRIURETIC PEPTIDE 44 pg/mL (0-100)
[2024-03-09] MEDS: ASPIRIN 81MG CHEW TAB PO ONE (12:59)
[2024-03-09] MEDS: KCL 20 MEQ ERTAB PO ONE (13:00)
[2024-03-09] MEDS ORDERED: IOHEXOL 350 MG/ML 100ML INFUS..BTL IV ONE (13:13)
[2024-03-09] MEDS ORDERED: POTASSIUM CHLORIDE 10% ELIXIR 20 MEQ/15 ML UDCUP PO PRN (15:30)
[2024-03-09] MEDS ORDERED: DEXTROSE 50%-WATER 50 ML DISP.SYRIN IV PRN (15:30)
[2024-03-09] MEDS ORDERED: POTASSIUM CHLORIDE 20MEQ/100ML 100 ML IV PRN ×2 (15:30)
[2024-03-09] MEDS ORDERED: KCL 20 MEQ ERTAB PO PRN (15:30)
[2024-03-09] MEDS ORDERED: GLUCAGON 1MG KIT 1 MG ML IM PRN (15:30)
[2024-03-09] MEDS ORDERED: MAGNESIUM 2GM PREMIX 50ML 50 ML IV PRN (15:30)
[2024-03-09 16:24] LABS: SARS-CoV-2, RNA, NAAT NEGATIVE SARS CoV-2 (NEGATIVE)
[2024-03-09 16:32] LABS: INFLUENZA TYPE A Negative For Type A (NEGATIVE); INFLUENZA TYPE B Negative For Type B (NEGATIVE)
[2024-03-09 18:56] VITALS: BP 175/74; PULSE 71; RESP 16
[2024-03-09 19:10] VITALS: BP 159/83; PULSE 75
[2024-03-09 19:16] VITALS: O2SAT 98
[2024-03-09 20:45] VITALS: O2SAT 98
[2024-03-09] MEDS: ENOXAPARIN SODIUM 60 MG/0.6 ML SQ SCH (21:16)
[2024-03-09] MEDS: ATORVASTATIN 40 MG TABLET PO SCH (21:16)
[2024-03-10 00:15] VITALS: BP 124/62; PULSE 71; RESP 18
[2024-03-10 03:47] LABS: BASOPHILS # (AUTO) 0.03 K/uL (0.00-0.20); BASOPHILS % (AUTO) 0.5 % (0.0-5.0); EOSINOPHILS # (AUTO) 0.21 K/uL (0.00-0.70); EOSINOPHILS % (AUTO) 3.8 % (0.0-8.0); HEMATOCRIT 33.1 % (36-48); IMMATURE GRANULOCYTE ABSOLUTE 0.02 K/uL (0-1); LYMPHOCYTES # (AUTO) 1.5 K/uL (1.0-4.8); LYMPHOCYTES % (AUTO) 26.5 % (21.0-51.0); MEAN CORPUSCULAR HEMOGLOBIN 29.1 pg (27.0-33.0); MEAN CORPUSCULAR HGB CONC 32.9 g/dL (32.0-36.0); MEAN CORPUSCULAR VOLUME 88.3 fL (79-99); MONOCYTES # (AUTO) 0.7 K/uL (0.1-1.0); NEUTROPHILS # (AUTO) 3.1 K/uL (1.8-7.7); NEUTROPHILS % (AUTO) 56.8 % (40.0-77.0); PLATELET COUNT (AUTO) 202 K/uL (130-400); RED BLOOD CELL COUNT(AUTO) 3.75 MIL/uL (4.00-5.50); RED CELL DISTRIBUTION WIDTH 14.2 % (11.0-15.5); WHITE BLOOD COUNT (AUTO) 5.5 K/uL (4.8-10.8)
[2024-03-10 04:00] VITALS: BP 103/52; PULSE 70; RESP 18
[2024-03-10 04:01] LABS: ALBUMIN 3.8 g/dL (3.5-5.0); BILIRUBIN,TOTAL 0.7 mg/dL (0.2-1.0); CREATININE 0.8 mg/dL (0.5-1.0); POTASSIUM 3.9 mmol/L (3.5-5.1); TOTAL PROTEIN, SERUM 7.5 g/dL (6.0-8.3)
[2024-03-10 07:00] VITALS: O2SAT 99
[2024-03-10 08:07] VITALS: BP 129/53; PULSE 73; RESP 20
[2024-03-10] MEDS: ASPIRIN 81MG CHEW TAB PO SCH (09:54)
[2024-03-10] MEDS: WARFARIN SODIUM 5 MG TAB PO SCH (09:55)
[2024-03-10] MEDS: FUROSEMIDE 20 MG TABLET PO SCH (09:56)
[2024-03-10] MEDS: METOPROLOL TARTRATE 25 MG TAB PO SCH (09:56)
[2024-03-10] MEDS: WARFARIN SODIUM 7.5 MG TAB PO SCH (09:56)
[2024-03-10] MEDS: LISINOPRIL 5 MG TABLET PO SCH (09:57)
[2024-03-10 11:55] VITALS: BP 100/46; PULSE 70; RESP 20
[2024-03-11] MEDS ORDERED: WARFARIN SODIUM 5 MG TAB PO SCH (09:00)
[2024-03-13] MEDS ORDERED: WARFARIN SODIUM 7.5 MG TAB PO SCH (09:00)
== END 2024-03-10 15:17 | disposition home or self-care (01) ==
LOC: EDH 11:09 → EDHIP 15:07 → INTOOBSV 15:07 → 2DH 18:40
PROVIDERS: ADMIT Internal Medicine Critical Care Medicine; ATTEND Internal Medicine Critical Care Medicine
DX: I65.23 Occlusion and stenosis of bilateral carotid arteries (principal); Z20.822 Contact with and (suspected) exposure to COVID-19; D64.9 Anemia, unspecified; R79.89 Other specified abnormal findings of blood chemistry; I10 Essential (primary) hypertension; E11.65 Type 2 diabetes mellitus with hyperglycemia; I35.0 Nonrheumatic aortic (valve) stenosis; E78.00 Pure hypercholesterolemia, unspecified; I25.10 Atherosclerotic heart disease of native coronary artery without angina pectoris; I27.20 Pulmonary hypertension, unspecified; I48.20 Chronic atrial fibrillation, unspecified; M79.89 Other specified soft tissue disorders; R29.810 Facial weakness; Z79.01 Long term (current) use of anticoagulants; Z79.899 Other long term (current) drug therapy; Z86.73 Personal history of transient ischemic attack (TIA), and cerebral infarction without residual deficits; Z95.0 Presence of cardiac pacemaker; Z95.1 Presence of aortocoronary bypass graft; Z95.3 Presence of xenogenic heart valve; Z88.0 Allergy status to penicillin; Z88.6 Allergy status to analgesic agent
CPT/HCPCS: 99285; 82550; 83721; 84484 ×4; 84132; 80053 ×2; 83880; 85025 ×2; 85610; 85730; 87804 ×2; 82948; 81001; 36415 ×2; 87635; 71045 ×2; 70450; 70496; 70498; 96372; 92522; 92610; 93005 ×3; 83735; 93306; 93880; 97161; 97116; J1650; Q9967; G0378 ×2

== ENCOUNTER → 2024-06-06 | Outpatient (CLI) | payer OTHER ==
[~2024-06-06] MED LIST changes: +ASPI-1005 PO; +FERR-72 PO; +FURO20TA6 PO; -PREVAGEN PO; -TRAM50TA4 PO
[2024-06-06 12:11] LABS: BASOPHILS # (AUTO) 0.03 K/uL (0.00-0.20); BASOPHILS % (AUTO) 0.5 % (0.0-5.0); EOSINOPHILS # (AUTO) 0.21 K/uL (0.00-0.70); EOSINOPHILS % (AUTO) 3.8 % (0.0-8.0); HEMATOCRIT 26.8 % (36-48); IMMATURE GRANULOCYTE ABSOLUTE 0.04 K/uL (0-1); LYMPHOCYTES # (AUTO) 1.6 K/uL (1.0-4.8); LYMPHOCYTES % (AUTO) 28.8 % (21.0-51.0); MEAN CORPUSCULAR HEMOGLOBIN 28.3 pg (27.0-33.0); MEAN CORPUSCULAR VOLUME 91.5 fL (79-99); MONOCYTES # (AUTO) 0.6 K/uL (0.1-1.0); MONOCYTES % (AUTO) 11.2 % (3.0-13.0); PLATELET COUNT (AUTO) 317 K/uL (130-400); RED BLOOD CELL COUNT(AUTO) 2.93 MIL/uL (4.00-5.50); RED CELL DISTRIBUTION WIDTH 15.7 % (11.0-15.5); WHITE BLOOD COUNT (AUTO) 5.5 K/uL (4.8-10.8)
[2024-06-06 12:22] LABS: INR 3.12 (0.85-1.15)
[2024-06-06 12:30] LABS: ALBUMIN 3.3 g/dL (3.5-5.0); BILIRUBIN,TOTAL 0.3 mg/dL (0.2-1.0); CREATININE 0.9 mg/dL (0.5-1.0); MAGNESIUM 2.2 mg/dL (1.80-2.40); POTASSIUM 4.7 mmol/L (3.5-5.1); TOTAL PROTEIN, SERUM 7.7 g/dL (6.0-8.3)
== END | disposition home or self-care (01) ==
LOC: LAB 06-05 14:07
PROVIDERS: ATTEND Internal Medicine Cardiovascular Disease
DX: I08.0 Rheumatic disorders of both mitral and aortic valves (principal); E78.5 Hyperlipidemia, unspecified; D68.59 Other primary thrombophilia
CPT/HCPCS: 36415; 80053; 80061; 83735; 85025; 85610

== ENCOUNTER → 2024-06-12 | Outpatient (CLI) | payer OTHER ==
[2024-06-12 16:55] LABS: % IRON SATURATION 11.6 % (22-44)
== END | disposition home or self-care (01) ==
LOC: LAB 11:23
PROVIDERS: ATTEND Internal Medicine Cardiovascular Disease
DX: D64.9 Anemia, unspecified (principal)
CPT/HCPCS: 36415; 82728; 83540; 83550

== ENCOUNTER 2024-10-15 21:27 | Emergency (ER) | payer OTHER ==
[~2024-10-15] VITALS: Ht 154.9 cm; Wt 47.6 kg
--- NOTE | 2024-10-15 21:55 | NUR ---
PT ACCIDENTALLY DOUBLE HER DOSE OF WARFARIN TODAY. PER ED MD, IT IS NOT ENOUGHT TO CAUSE AND ISSUE TODAY. SHE WILL HAVE TO HOLD MEDICATION UNTIL SHE FOLLOWS UP WITH HER PCP IN 2 DAYS AND HAS A FOLLW UP INR PERFORMED AT WHICH TIME THEY CAN MAKE THE DETEMININATION TO CONTINUE MEDICATION
--- NOTE | 2024-10-15 22:12 | ERN ---
ED Note History of Present Illness Stated Complaint: TOOK THE PILLS WRONG Chief Complaint: Accidental Ingestion Time Seen by MD: 21:32 Time Seen by Midlevel: 21:38 Dictation: 84-year-old female with history of hypertension in surgical history of open h eart coming in because she states she took more warfarin that she was supposed to. Patient states on Mondays, Wednesdays, Monday she is supposed to take a total of 6 mg of warfarin, and on Tuesdays and she has to take a total of 9 mg. Today states accidentally she took the dose for taking a total of 18 mg of warfarin. Denies any complaints at this time, no bleeding, no chest pain, short of breath, nausea vomiting or diarrhea. Allergies: Coded Allergies: Penicillins (Unverified Allergy, Unknown, RASH, 05/24/17) diphenhydramine (Unverified Allergy, Unknown, RASH, 05/24/17) Home Meds Active Scripts Furosemide (Lasix 20Mg Tab) 20 Mg Tablet, 20 MG PO DAILY, #30 TAB 2 Refills Prov:MEDARDO PATEL 05/23/24 Reported Medications Ferrous Sulfate (Ferrous Sulfate) 325 Mg (65 Mg Iron) Tablet, 325 MG PO DAILY, TAB 05/20/24 Aspirin (ASPIRIN 81MG CHEW TAB) 81 Mg Tab.chew, 81 MG PO DAILY, TAB.CHEW 05/20/24 Warfarin Sodium (Warfarin Sodium) 7.5 Mg Tablet, 7.5 MG PO DAILY, TAB DAILY ON MONDAY/MONDAY/Monday01/15/24 Warfarin Sodium (Warfarin Sodium) 5 Mg Tablet, 5 MG PO DAILY, TAB DAILY ON MONDAY/MONDAY/MONDAY/Monday01/15/24 Empagliflozin (Jardiance) 10 Mg Tablet, 10 MG PO AM, TAB 01/15/24 Atorvastatin Calcium (Atorvastatin Calcium) 40 Mg Tablet, 40 MG PO HS, TAB 10/06/21 Metoprolol Tartrate (Metoprolol Tartrate) 25 Mg Tablet, 12.5 MG PO BID, TAB 10/06/21 Glipizide/Metformin HCl (Glipizide-Metformin 5-500 mg) 1 Each Tablet, 1 EACH PO DAILY, TAB 10/06/21 Lisinopril (Lisinopril) 5 Mg Tablet, 5 MG PO DAILY, TAB 10/06/21 Furosemide (Furosemide) 20 Mg Tablet, 20 MG PO DAILY, TAB 10/03/17 Past Medical History Past Medical History: Diabetes-Type II Surgical History: Unknown Surgical History Other: OPEN HEART X 3, ARTIFICAL HEART VALVES Social History: Negative, Lives with family History: Not Applicable Review of System Dictation Constitutional: Negative for fever,chills, and weight loss Eyes: Negative for injury, pain,redness, and discharge ENT: Negative for injury,pain or swelling Cardiovascular: Negative for chest pain, palpitations, and edema Respiratory: Negative for shortness of breath, cough, and wheezing, Abdomen/GI: Negative for abdominal pain, nausea, vomiting, diarrhea, and constipation Back: Negative for injury and pain : Negative for injury, bleeding and discharge MS/Extremity: Negative for injury and deformity Skin: Negative for rash, and discoloration Neuro: Negative for headache, weakness, numbness, tingling, and seizure Psych: Negative for suicide ideation, homicidal ideation, and hallucinations Review of Systems: was completed Initial Vital Sign VS Vital Signs Date Time Temp Pulse Resp B/P (MAP) Pulse Ox O2 Delivery O2 Flow Rate FiO2 10/15/24 21:46 98.1 74 20 178/66 95 Room Air Physical Exam Dictation General: awake, alert, NAD Head/Face: Normocephalic, atraumatic Eyes: PERRL, EOMI, vision at baseline ENT: oral cavity clear, TMs clear, no signs of infection Neck: Trachea midline, supple, no nuchal rigidity Cardiovascular: RRR, normal S1/S2, No MRGs, no JVD Respiratory: CTAB, no respiratory distress, No rales or wheezes Abdomen: Soft, non-tender, non-distended, normal bowel sounds, no guarding or rebound. Skin: Warm, dry, normal turgor, no rash MS/Extremity: Pulses equal, no cyanosis, neurovascular intact, FROM Neuro: COAx4, GCS 15, strength 5/5, CN 2-12 intact, normal cerebellar exam, normal gait, Psych: Normal behavior, mood, and affect normal ED Course ED Course Vital Signs Date Time Temp Pulse Resp B/P (MAP) Pulse Ox O2 Delivery O2 Flow Rate FiO2 10/15/24 21:46 98.1 74 20 178/66 95 Room Air Medical Decision Making MDM MDM: 84-year-old female with history of hypertension in surgical history of open heart coming in because she states she took more warfarin that she was supposed to. Patient states on Mondays, Wednesdays, Monday she is supposed to take a total of 6 mg of warfarin, and on Tuesdays and she has to take a total of 9 mg. Today states accidentally she took the dose for taking a total of 18 mg of warfarin. Denies any complaints at this time, no bleeding, no chest pain, short of breath, nausea vomiting or diarrhea. Patient is going to be discharged to follow up outpatient, educated patient to skip the next two doses and follow up with her PCP so they can drop blood and check her INR since the dose that she took today will not take effect most likely in the next 18-36 hours. Discussed symptoms and signs on when to return back to the ER like excessive bleeding, blood in stools blood in urine, bleeding gums. Patient verbalized understanding, answered all questions. Differential diagnosis: Medication air, acute bleeding Rationale: Tests considered and ordered secondary to shared decision making include: Previous outside records reviewed: Old ER visits. Risk of complication and/or morbidity or mortality of patient management: None Medications-Per medication reconciliation Need for hospitalization: Patient does not meet criteria for hospitalization. Need for emergency major/minor surgery: No There are no social concerns with this patient. Prescription drug management Prescriptions will include symptomatic care Patient's prior external medical records from other ER visits were reviewed by me as indicated. Prior testing and results from previous visits were reviewed. Prior tests were taken into account with medical decision making and resource utilization, independent historian/historians were used to obtain complete medical history. I independently interpreted the test that were performed, results were reviewed by me and considered findings on radiology if ordered. Medical management and examination interpretation discussions were had by me with other qualified healthcare professionals as indicated for the patient's care. DX & DISP Disposition: Discharge Departure Impression: Primary Impression: Accidental medication error Condition: Stable Additional Instructions: Do not take your warfarin in the next two days, follow up with your primary doctor. Return if you have any signs of bleeding. Referrals: ALEC TATUM MD (PCP) Time of Disposition: 22:11 I have reviewed the case, and I agree with, Diagnosis and Plan PRESTON YUN NP Oct 15, 2024 22:12
[2024-10-15 22:22] VITALS: BP 164/68; PULSE 77; RESP 18; TEMP 97.5; O2SAT 98
== END 2024-10-15 22:23 | disposition home or self-care (01) ==
LOC: EDH 21:27
DX: T45.511A Poisoning by anticoagulants, accidental (unintentional), initial encounter (principal); E11.9 Type 2 diabetes mellitus without complications; Z79.01 Long term (current) use of anticoagulants; Z79.82 Long term (current) use of aspirin; Z79.84 Long term (current) use of oral hypoglycemic drugs; Z79.899 Other long term (current) drug therapy; Z88.0 Allergy status to penicillin; Y92.89 Other specified places as the place of occurrence of the external cause
CPT/HCPCS: 99281

== ENCOUNTER → 2024-10-17 | Outpatient (CLI) | payer OTHER ==
[2024-10-17 16:51] LABS: PROTHROMBIN TIME 57.7 SEC (9.6-11.6)
[2024-10-17 16:52] LABS: INR 6.11 (0.85-1.15)
== END | disposition home or self-care (01) ==
LOC: LAB 14:56
PROVIDERS: ATTEND Internal Medicine Cardiovascular Disease
DX: I08.0 Rheumatic disorders of both mitral and aortic valves (principal)
CPT/HCPCS: 36415; 85610

== ENCOUNTER → 2024-10-18 | Outpatient (CLI) | payer OTHER ==
[2024-10-18 13:17] LABS: PARTIAL THROMBOPLASTIN TIME 50.1 SEC (26.3-35.5)
[2024-10-18 13:56] LABS: INR 4.53 (0.85-1.15); PROTHROMBIN TIME 43.7 SEC (9.6-11.6)
== END | disposition home or self-care (01) ==
LOC: LAB 10:36
PROVIDERS: ATTEND Internal Medicine Cardiovascular Disease
DX: I08.0 Rheumatic disorders of both mitral and aortic valves (principal); Z79.01 Long term (current) use of anticoagulants
CPT/HCPCS: 36415; 85610; 85730

== ENCOUNTER → 2024-11-12 | Outpatient (CLI) | payer OTHER ==
[2024-11-12 12:23] LABS: BASOPHILS # (AUTO) 0.04 K/uL (0.00-0.20); BASOPHILS % (AUTO) 0.9 % (0.0-5.0); EOSINOPHILS # (AUTO) 0.12 K/uL (0.00-0.70); EOSINOPHILS % (AUTO) 2.6 % (0.0-8.0); HEMATOCRIT 34.8 % (36-48); IMMATURE GRANULOCYTE ABSOLUTE 0.01 K/uL (0-1); LYMPHOCYTES # (AUTO) 1.5 K/uL (1.0-4.8); LYMPHOCYTES % (AUTO) 32.6 % (21.0-51.0); MEAN CORPUSCULAR HEMOGLOBIN 29.5 pg (27.0-33.0); MEAN CORPUSCULAR HGB CONC 32.2 g/dL (32.0-36.0); MEAN CORPUSCULAR VOLUME 91.6 fL (79-99); MONOCYTES # (AUTO) 0.5 K/uL (0.1-1.0); MONOCYTES % (AUTO) 10.7 % (3.0-13.0); NEUTROPHILS # (AUTO) 2.5 K/uL (1.8-7.7); PLATELET COUNT (AUTO) 159 K/uL (130-400); RED CELL DISTRIBUTION WIDTH 16.3 % (11.0-15.5); WHITE BLOOD COUNT (AUTO) 4.7 K/uL (4.8-10.8)
[2024-11-12 12:39] LABS: ALBUMIN 4.2 g/dL (3.5-5.0); BILIRUBIN,TOTAL 0.5 mg/dL (0.2-1.0); CREATININE 0.9 mg/dL (0.5-1.0); MAGNESIUM 2.1 mg/dL (1.80-2.40); POTASSIUM 4.3 mmol/L (3.5-5.1); TOTAL PROTEIN, SERUM 7.4 g/dL (6.0-8.3)
== END | disposition home or self-care (01) ==
LOC: LAB 08:52
PROVIDERS: ATTEND Internal Medicine Cardiovascular Disease
DX: D64.9 Anemia, unspecified (principal); I25.10 Atherosclerotic heart disease of native coronary artery without angina pectoris; R42 Dizziness and giddiness
CPT/HCPCS: 36415; 80053; 80061; 83735; 85025

== ENCOUNTER → 2024-12-11 | Outpatient (CLI) | payer OTHER ==
[2024-12-11 12:18] LABS: BASOPHILS # (AUTO) 0.04 K/uL (0.00-0.20); BASOPHILS % (AUTO) 0.9 % (0.0-5.0); EOSINOPHILS # (AUTO) 0.16 K/uL (0.00-0.70); EOSINOPHILS % (AUTO) 3.6 % (0.0-8.0); IMMATURE GRANULOCYTE ABSOLUTE 0.01 K/uL (0-1); LYMPHOCYTES # (AUTO) 1.3 K/uL (1.0-4.8); LYMPHOCYTES % (AUTO) 28.1 % (21.0-51.0); MEAN CORPUSCULAR HEMOGLOBIN 29.9 pg (27.0-33.0); MEAN CORPUSCULAR VOLUME 93.6 fL (79-99); MONOCYTES # (AUTO) 0.5 K/uL (0.1-1.0); MONOCYTES % (AUTO) 11.7 % (3.0-13.0); NEUTROPHILS # (AUTO) 2.5 K/uL (1.8-7.7); NEUTROPHILS % (AUTO) 55.5 % (40.0-77.0); PLATELET COUNT (AUTO) 187 K/uL (130-400); RED BLOOD CELL COUNT(AUTO) 3.74 MIL/uL (4.00-5.50); RED CELL DISTRIBUTION WIDTH 14.6 % (11.0-15.5); WHITE BLOOD COUNT (AUTO) 4.5 K/uL (4.8-10.8)
[2024-12-11 12:51] LABS: ALBUMIN 4.1 g/dL (3.5-5.0); BILIRUBIN,TOTAL 0.7 mg/dL (0.2-1.0); CREATININE 0.7 mg/dL (0.5-1.0); TOTAL PROTEIN, SERUM 7.3 g/dL (6.0-8.3)
[2024-12-11 12:57] LABS: MAGNESIUM 1.9 mg/dL (1.80-2.40)
== END | disposition home or self-care (01) ==
LOC: LAB 08:24
PROVIDERS: ATTEND Internal Medicine Cardiovascular Disease
DX: I25.10 Atherosclerotic heart disease of native coronary artery without angina pectoris (principal); D64.9 Anemia, unspecified; R42 Dizziness and giddiness
CPT/HCPCS: 36415; 80053; 80061; 83735; 85025

== ENCOUNTER 2025-09-14 16:31 | Emergency (ER) | payer OTHER ==
[~2025-09-14] VITALS: Ht 154.9 cm; Wt 49.9 kg
[2025-09-14 16:36] VITALS: BP 175/52; PULSE 70; RESP 17; TEMP 98.4
--- NOTE | 2025-09-14 16:36 | NUR ---
REFER TO TRAUMA FLOWSHEET
--- NOTE | 2025-09-14 16:46 | ERN ---
General Chief Complaint: Mechanical Fall Stated Complaint: FALL AND HIT HEAD Time Seen by MD: 16:36 History of Present Illness Initial Comments 85-year-old female who presents for a fall. Patient had a mechanical fall, she had the right side of her lutheran. No loss of consciousness. No repetitive questioning. She is a septum tenderness to the right occipital area. She does take warfarin. No other injuries. She was in her normal state of health prior to the mechanical fall. Allergies: Coded Allergies: Penicillins (Unverified Allergy, Unknown, RASH, 05/24/17) diphenhydramine (Unverified Allergy, Unknown, RASH, 05/24/17) Home Meds Active Scripts Furosemide (Lasix 20Mg Tab) 20 Mg Tablet, 20 MG PO DAILY, #30 TAB 2 Refills Prov:MEDARDO PATEL PAC 05/23/24 Reported Medications Ferrous Sulfate (Ferrous Sulfate) 325 Mg (65 Mg Iron) Tablet, 325 MG PO DAILY, TAB 05/20/24 Aspirin (ASPIRIN 81MG CHEW TAB) 81 Mg Tab.chew, 81 MG PO DAILY, TAB.CHEW 05/20/24 Warfarin Sodium (Warfarin Sodium) 7.5 Mg Tablet, 7.5 MG PO DAILY, TAB DAILY ON MONDAY/MONDAY/Monday01/15/24 Warfarin Sodium (Warfarin Sodium) 5 Mg Tablet, 5 MG PO DAILY, TAB DAILY ON MONDAY/MONDAY/MONDAY/Monday01/15/24 Empagliflozin (Jardiance) 10 Mg Tablet, 10 MG PO AM, TAB 01/15/24 Atorvastatin Calcium (Atorvastatin Calcium) 40 Mg Tablet, 40 MG PO HS, TAB 10/06/21 Metoprolol Tartrate (Metoprolol Tartrate) 25 Mg Tablet, 12.5 MG PO BID, TAB 10/06/21 Glipizide/Metformin HCl (Glipizide-Metformin 5-500 mg) 1 Each Tablet, 1 EACH PO DAILY, TAB 10/06/21 Lisinopril (Lisinopril) 5 Mg Tablet, 5 MG PO DAILY, TAB 10/06/21 Furosemide (Furosemide) 20 Mg Tablet, 20 MG PO DAILY, TAB 10/03/17 Past Medical History Past Medical History: Diabetes-Type II, Hypertension Past Surgical History: Cholecystectomy, Pacer/AICD Surgical History Other: OPEN HEART X 3, ARTIFICAL HEART VALVES Social History Social History: Negative, Lives with family Female( History) History: Not Applicable ROS Dictation CONSTITUTIONAL: No chills, no fever, no weakness, no diaphoresis, no malaise. HEAD/FACE: No signs of trauma. EENT: No eye pain, no blurred vision, no tearing, no double vision, no ear pain, no ear discharge, no nose pain, no nasal congestion, no throat pain, no throat swelling, no mouth pain. RESPIRATORY: No cough, no orthopnea, no SOB, no stridor, no wheezing. CARDIOVASCULAR: No chest pain, no edema, no palpitations, no syncope. GASTROINTESTINAL/ABDOMINAL: No abdominal pain, no constipation, no diarrhea, no nausea, no vomiting. GENITOURINARY: No abnormal discharge, no dysuria, no frequent urination, no hematuria. No complaints of pain in the genitals. MUSCULOSKELETAL: No back pain, no gout, no joint pain, no joint swelling, no muscle pain, no muscle stiffness, no neck pain. INTEGUMENTARY: No change in color, no change in hair/nails, no dryness, no lesion, no lumps, no rash. NEUROLOGICAL/PSYCH: No anxiety, not depressed, no emotional problem, no headache, no numbness, no pre-existing deficit, no history of seizures, no tremors, no weakness. HEMATOLOGIC/LYMPHATIC: Not anemic, no history of blood clots, no apparent bleeding, no bruising, glands not swollen. All Systems Negative, Except as Noted. Physical Exam Physical Exam Dictation Rash GCS VITAL SIGNS: Reviewed. GENERAL APPEARANCE: Alert, oriented x3, no acute distress. HEAD AND FACE: Non-traumatic. EYES: PERRL, pink conjunctivas, eyelid no trauma, anterior chamber clear. EARS: Pinnas intact and no signs of trauma or erythema. Ear canals clear and no discharge. TMs no erythema. NOSE: No discharge, no bleeding. OROPHARYNX: Mouth normal, teeth no caries, tongue pink. Pharynx clear, no erythema. Tonsils no exudates, no abscesses noted. Mucous membrane moist. NECK: Supple, non-tender, no thyromegaly, no masses, no JVD, no bruits. BREAST: Deferred. CHEST: No tenderness, no crepitus, no paradoxical movement, no retractions. LUNGS: Clear, well-ventilated, symmetric, no rales, no wheezing, no rhonchi, no stridor, good breath sounds bilaterally. HEART: Regular rate, regular rhythm, no murmur, no gallops. VASCULAR: No peripheral edema. ABDOMEN: Soft, positive bowel sounds, nondistended, no guarding, nontender, no rebound, no masses no hepatomegaly, no splenomegaly, no Noble's sign, no hernias. RECTAL: Deferred. GENITAL: Deferred. NEUROLOGICAL: Normal speech, gross motor function intact, gross sensory function intact. MUSCULOSKELETAL: Neck nontender, full range of motion, back nontender, full range of motion. EXTREMITIES: Nontender, full range of motion. SKIN: Color pink, dry, no turgor, no rash, no lacerations, no abrasions, no contusions. LYMPHATICS: Deferred. MDM CC: Head injury mechanical fall Historian: Patient Comorbidities: On warfarin, advanced age Limitations by social determinants of health: None Differential diagnosis: Head injury, soft tissue injury, other CT head and cervical spine are unremarkable ABC's intact Vital signs stable No labs indicated Likely minor head trauma. We will DC. ED Course Orders Procedure Category Date Status Time Ct Head/Brain W/O CT 09/14/25 Resulted Contrast 16:39 Ct Cervical Spine W/O CT 09/14/25 Resulted Contrast 16:39 Vital Signs Date Time Temp Pulse Resp B/P (MAP) Pulse Ox O2 Delivery O2 Flow Rate FiO2 09/14/25 16:36 98.4 70 17 175/52 99 Room Air 0 DX & DISP Disposition: Discharge Departure Impression: Primary Impression: Minor head injury Condition: Stable Additional Instructions: The CT scans do not show any fractures or major injuries. You can apply ice to the affected area as needed. Take over the counter tylenol for pain as needed. Please return to the ED as needed. Referrals: ALEC TATUM MD (PCP) LUCERO PINK DO Sep 14, 2025 16:46
--- NOTE | 2025-09-14 17:10 | HMCIMG ---
EXAM: CT Head Without IV contrast. CLINICAL HISTORY: head injury TECHNIQUE: Axial computed tomography images of the head/brain without intravenous contrast. COMPARISON: None provided. FINDINGS: BRAIN: No acute bleed or infarct. Chronic ischemic and atrophic changes. 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 VENTRICLES: No hydrocephalus. ORBITS: The orbits are unremarkable. SINUSES AND MASTOIDS: The paranasal sinuses and mastoid air cells are clear. BONES: No fracture. SOFT TISSUES: Unremarkable. IMPRESSION: 1. No acute bleed or infarct. Chronic ischemic and atrophic changes. 2. 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 /[place]
--- NOTE | 2025-09-14 18:31 | HMCIMG ---
EXAM: CT Cervical Spine Without IV Contrast CLINICAL HISTORY: Head injury. TECHNIQUE: Thin collimated axial CT images of the cervical spine were obtained with sagittal and coronal reformatted images also submitted. CT scan is done according to ALARA (As Low As Reasonably Achievable). CONTRAST: None. COMPARISON: None provided. FINDINGS: No acute fracture. Normal lordotic curvature. Mild multilevel spondylosis is evident by small marginal osteophytes. Normal vertebral body and disc heights. Normal bone density. The surrounding soft tissues are unremarkable. Diffuse disc bulges causing mild indentation on the anterior thecal sac at C4-C5 C5-C6, C6-C7, and C7-T1 levels. IMPRESSIONS: No acute fracture or subluxation. Mild multilevel spondylosis. Diffuse disc bulges causing mild indentation on the anterior thecal sac at C4-C5 C5-C6, C6-C7, and C7-T1 levels. /[place]
--- NOTE | 2025-09-15 10:24 | EKG ---
[facility] Test Date: 2025-09-14 Test Time: 16:43:21 Pat Name: JOSE MANUEL ESPINAL Department: [facility] Room: Gender: F Inspector [employer]: [id number] : 1940 Requested By: LUCERO PINK Order Number: [id number] Reading MD: Nella House Measurements Intervals [place]rill Rate: 70 P: 135 MT: 388 QRS: -51 QRSD: 151 T: 107 QT: 455 QTc: 491 Interpretive Statements Ventricular-paced rhythm Compared to ECG 05/20/2024 15:01:23 No significant changes Electronically Signed On 09-15-2025 20:15:37 CDT by Nella House Please click the below link to view image of tracing.
== END 2025-09-14 19:08 | disposition home or self-care (01) ==
LOC: EDH 16:31
DX: S09.90XA Unspecified injury of head, initial encounter (principal); E11.9 Type 2 diabetes mellitus without complications; I10 Essential (primary) hypertension; Z88.0 Allergy status to penicillin; Z88.8 Allergy status to other drugs, medicaments and biological substances; Z79.82 Long term (current) use of aspirin; Z79.84 Long term (current) use of oral hypoglycemic drugs; Z79.899 Other long term (current) drug therapy; Z79.01 Long term (current) use of anticoagulants; Z86.73 Personal history of transient ischemic attack (TIA), and cerebral infarction without residual deficits; Z90.49 Acquired absence of other specified parts of digestive tract; Z95.810 Presence of automatic (implantable) cardiac defibrillator; W01.10XA Fall on same level from slipping, tripping and stumbling with subsequent striking against unspecified object, initial encounter; Y93.89 Activity, other specified; Y92.89 Other specified places as the place of occurrence of the external cause; Y99.8 Other external cause status
CPT/HCPCS: 70450; 72125; 93005; 99284